=== PATIENT | female | born 1990 | race Caucasian/White ===

== ENCOUNTER 2024-06-29 09:47 | Emergency (ER) | payer SELFPAY ==
[2024-06-29 10:48] LABS: Absolute Eosinophils 0.1 K/uL (0-0.5); Absolute Lymphocytes (CBC) 1.8 K/uL (0.7-4.9); Absolute Monocytes 0.4 K/uL (0.1-1.3); Absolute Neutrophil 3.1 K/uL (1.8-8.0); Basophils % 0.6 % (0-1.3); Eosinophils % 2.3 % (0-4.4); Hematocrit 33.4 % (36.0-45.0); Lymphocytes % 32.8 % (15.3-44.8); MCH 27.1 pg (27.0-35.0); MCHC 32.9 g/dL (32.0-36.0); MCV 82.2 fL (80-100); MPV 8.6 fL (7.6-11.3); Monocytes % 6.8 % (3.3-12.3); Neutrophils % 57.5 % (41.7-73.7); Platelets 207 thou/uL (152-406); RBC Red Blood Cell Count 4.07 M/uL (3.86-4.86); Red Cell Distribution Width 14.2 % (12.1-15.2)
[2024-06-29 11:05] LABS: Anion Gap 6.8 mEq/L (5.0-15.0); BUN Blood Urea Nitrogen 12 mg/dL (7-18); Bicarbonate 29 mEq/L (21-32); Glomerular Filtration Rate 119 ml/min (=/>90); Glucose Level 112 mg/dL (74-106); Magnesium 1.9 mg/dL (1.6-2.4); NT PRO-BNP 78 pg/mL (<125); Potassium 3.8 mEq/L (3.5-5.1); Sodium Level 141 mEq/L (136-145)
[2024-06-29 11:14] LABS: Troponin High Sensitivity < 3.0 pg/mL (<58.9)
--- NOTE | 2024-06-29 13:15 | EDPHYS ---
Physician Documentation [facility] Name: Kay Appiah Age: 34 yrs Sex: Female : 1990 Arrival Date: 06/29/2024 Time: 09:47 Bed 15 Private MD: ED Physician Ann Hobson HPI: 06/29 10:22 This 34 yrs old Female presents to ER via Ambulatory with complaints of Hand Swelling, sd2 Palpitations. 10:22 34 yo F presents with CC of intermittent palpitations for the past year. Reports some sd2 intermittent CP as well. Usually brought on by exertion and stressful events. Seen in May with negative workup per her report as well for similar symptoms. Reports sensation of swelling and tightness in her right hand as well. Denies SOB, n/v. . Historical: - Allergies: 10:08 No Known Allergies; bp - Home Meds: 10:08 Unable to obtain [Active]; bp - PMHx: 10:08 ADHD; bp - Immunization history:: Adult Immunizations up to date. - Infectious Disease History:: Denies. - Social history:: Smoking status: Patient denies any tobacco usage or history of. ROS: 10:22 Constitutional: Negative for fever, chills, and weight loss, Eyes: Negative for injury, sd2 pain, redness, and discharge, Neck: Negative for injury, pain, and swelling, 10:22 Respiratory: Negative for shortness of breath, cough, wheezing. Abdomen/GI: Negative for abdominal pain, nausea, vomiting, diarrhea. 10:22 Skin: Negative for injury, rash, and discoloration, Neuro: Negative for headache, numbness and tingling. 10:22 Cardiovascular: Positive for chest pain, palpitations, Negative for edema, 10:22 MS/extremity: Positive for swelling, Negative for injury or acute deformity, Exam: 10:22 Constitutional: This is a well developed, well nourished patient who is awake, alert, sd2 and in no acute distress. Head/Face: Normocephalic, atraumatic. Eyes: EOMI, normal conjunctiva bilaterally Neck: Trachea midline, no thyromegaly or masses palpated, and no cervical lymphadenopathy. Supple, full range of motion without nuchal rigidity, or vertebral point tenderness. No Meningismus. Chest/axilla: Normal chest wall appearance and motion. Nontender with no deformity. Cardiovascular: Regular rate and rhythm with a normal S1 and S2. No gallops, murmurs, or rubs. 2+ distal pulses. Respiratory: Lungs have equal breath sounds bilaterally, clear to auscultation and percussion. No rales, rhonchi or wheezes noted. No increased work of breathing, no retractions or nasal flaring. Abdomen/GI: Soft, non-tender, with normal bowel sounds. No guarding or rebound. No evidence of tenderness throughout. Skin: Warm, dry with normal turgor. Normal color with no rashes, no lesions, and no evidence of cellulitis. MS/ Extremity: Pulses equal, no cyanosis. Neurovascular intact. Full, normal range of motion. Psych: Awake, alert, with orientation to person, place and time. Behavior, mood, and affect are within normal limits. 10:22 ECG was reviewed by the Attending Physician. NSR, rate 72, no STEMI criteria sd2 Vital Signs: 10:06 BP 115 / 79; Pulse 74; Resp 16; Temp 97.9; Pulse Ox 100% ; Weight 61.69 kg; Height 5 bp ft. 3 in. ; 10:06 Body Mass Index 24.09 (61.69 kg, 160.02 cm) bp MDM: 10:21 Patient medically screened. sd2 13:12 Differential diagnosis: palpitations, arrhythmia, ACS, electrolyte abnormality, PE, sd2 anxiety among others. Data reviewed: vital signs, nurses notes, lab test result(s), EKG, radiologic studies. Care significantly affected by the following chronic conditions: ADHD. Counseling: I had a detailed discussion with the patient and/or guardian regarding the historical points, exam findings, and any diagnostic results supporting the discharge/admit diagnosis, lab results, radiology results, the need for outpatient follow up, to return to the emergency department if symptoms worsen or persist or if there are any questions or concerns that arise at home. ED course: Labs and imaging reviewed with no acute findings. Trop neg. EKG with no ischemic changes. XRs with no acute process noted. Pt advised to follow up with PCP regarding long-term ongoing of these symptoms. Verbalizes understanding of discharge plan and strict return precautions. . 06/29 10:22 Order name: CBC with Diff; Complete Time: 11:20 sd2 06/29 10:22 Order name: BMP; Complete Time: 11:20 06/29 10:22 Order name: Magnesium; Complete Time: 11:20 06/29 10:22 Order name: Troponin High Sensitivity; Complete Time: 11:20 06/29 10:22 Order name: BNP; Complete Time: 11:20 06/29 10:22 Order name: XRAY Chest (1 view); Complete Time: 17:38 06/29 11:21 Order name: XRAY Hand RIGHT 3 View; Complete Time: 17:38 06/29 10:22 Order name: EKG - Nurse/Tech; Complete Time: 10:34 sd2 Administered Medications: No medications were administered Disposition Summary: 06/29/24 13:14 Discharge Ordered Problem: an ongoing problem sd2 Symptoms: have improved sd2 Condition: Stable sd2 Diagnosis - Palpitations sd2 - Sensation of right hand tightness sd2 Followup: sd2 - With: Private Physician - When: 2 - 3 days - Reason: Recheck today's complaints, Continuance of care, Re-evaluation by your physician Discharge Instructions: - Discharge Summary Sheet sd2 - Palpitations sd2 Forms: - Work release form iw - Family Work Release iw - Medication Reconciliation Form sd2 - Antibiotic Education sd2 - Prescription Opioid Use sd2 - Patient Portal Instructions sd2 - Leadership Thank You Letter sd2 Signatures: Dispatcher [employer] Dalton Victor, RN RN Ann Davison MD MD sd2 Corrections: (The following items were deleted from the chart) 10:22 10:22 Chest Single View+RAD.RAD.[email or web address] ordered. SIMONE NICHOLS
--- NOTE | 2024-06-29 13:15 | ER ---
Nurse's Notes [facility] Name: Kay Appiah Age: 34 yrs Sex: Female : 1990 Arrival Date: 06/29/2024 Time: 09:47 Bed 15 Private MD: Diagnosis: Palpitations;Sensation of right hand tightness Presentation: 06/29 10:06 Chief complaint: Patient states: PALPITATIONS x1 YR, RIGHT HAND SUBJECTIVE EDEMA x1 bp DAY. Coronavirus screen: At this time, the client does not indicate any symptoms associated with coronavirus-19. Ebola Screen: No symptoms or risks identified at this time. Initial Sepsis Screen: Does the patient meet any 2 criteria? No. Patient's initial sepsis screen is negative. Does the patient have a suspected source of infection? No. Patient's initial sepsis screen is negative. Risk Assessment: Do you want to hurt yourself or someone else? Patient reports no desire to harm self or others. Onset of symptoms is unknown. 10:06 Method Of Arrival: Ambulatory bp 10:06 Acuity: QIANA 3 bp Triage Assessment: 10:08 General: Appears in no apparent distress. Behavior is cooperative, appropriate for age, bp anxious. Pain: Denies pain. EENT: No deficits noted. Neuro: Level of Consciousness is awake, alert, obeys commands, Oriented to Appropriate for age. Cardiovascular: No deficits noted. Respiratory: No deficits noted. GI: No signs and/or symptoms were reported involving the gastrointestinal system. Historical: - Allergies: 10:08 No Known Allergies; bp - Home Meds: 10:08 Unable to obtain [Active]; bp - PMHx: 10:08 ADHD; bp - Immunization history:: Adult Immunizations up to date. - Infectious Disease History:: Denies. - Social history:: Smoking status: Patient denies any tobacco usage or history of. Screenin:20 [facility] ED Fall Risk Assessment (Adult) History of falling in the last 3 months, db including since admission No falls in past 3 months (0 pts) Confusion or Disorientation No (0 pts) Intoxicated or Sedated No (0 pts) Impaired Gait No (0 pts) Mobility Assist Device Used No (0 pt) Altered Elimination No (0 pt) Score/Fall Risk Level 0 - 2 = Low Risk Oriented to surroundings, Maintained a safe environment. Abuse screen: Denies threats or abuse. Denies injuries from another. Nutritional screening: No deficits noted. Tuberculosis screening: No symptoms or risk factors identified. Assessment: 10:15 Reassessment: Patient appears in no apparent distress at this time. Patient and/or db family updated on plan of care and expected duration. Pain level reassessed. Patient is alert, oriented x 3, equal unlabored respirations, skin warm/dry/pink. General: Appears in no apparent distress. comfortable, Behavior is calm, cooperative, appropriate for age. Pain: Complains of pain in chest. Neuro: Level of Consciousness is awake, alert, obeys commands, Oriented to person, place, time, situation. Cardiovascular: Reports palpitations. Respiratory: Airway is patent Respiratory effort is even, unlabored, Respiratory pattern is regular, symmetrical. Vital Signs: 10:06 BP 115 / 79; Pulse 74; Resp 16; Temp 97.9; Pulse Ox 100% ; Weight 61.69 kg; Height 5 bp ft. 3 in. ; 10:06 Body Mass Index 24.09 (61.69 kg, 160.02 cm) bp ED Course: 09:51 Patient arrived in ED. im 09:56 Ann Hobson MD is Attending Physician. sd2 10:08 Suha Corral, RN is Primary Nurse. db 10:08 Triage completed. bp 10:08 Arm band placed on. bp 10:42 Initial lab(s) drawn, by me, sent to lab. Inserted saline lock: 20 gauge in right bc6 antecubital area, using aseptic technique. Blood collected. Flushed with 10 mL NS. 10:58 Patient has correct armband on for positive identification. Bed in low position. Call db light in reach. Side rails up X 1. Report given to EMILY LEE. Client placed on continuous cardiac and pulse oximetry monitoring. NIBP monitoring applied. color television console monitor on. Pulse ox on. NIBP on. Warm blanket given. Pillow given. 11:08 Tasneem Vargas, RN is Primary Nurse. iw 11:49 XRAY Chest (1 view) In Process Unspecified. EDMS 11:49 XRAY Hand RIGHT 3 View In Process Unspecified. EDMS Administered Medications: No medications were administered Medication: 10:20 VIS not applicable for this client. db Outcome: 13:14 Discharge ordered by . sd2 13:55 Patient left the ED. iw Signatures: Dispatcher [employer] Tasneem Gray RN RN iw Peltier, Brian, RN RN bp Dunlop, Stephanie, MD MD sd2 Suha Corral RN RN db Carowatson, Breana 6 Lou Sands
--- NOTE | 2024-06-29 13:48 | RAD REPORT ---
Exam:Hand Right 3 View HISTORY: Right hand swelling FINDINGS: No fracture or dislocation seen No bone or joint abnormality noted
--- NOTE | 2024-06-29 13:48 | RAD REPORT ---
Procedure: Chest Single View History: Chest pain Comparison: none The lungs appear clear of acute infiltrate. No significant pleural effusion noted. The heart is normal size. IMPRESSION: No acute abnormality is displayed.
[2024-06-29 14:13] VITALS: BP 115/79; TEMP 97.9; O2SAT 100
--- NOTE | 2024-06-30 12:11 | EKG ---
Test Date: 2024-06-29 Test Time: 10:17:02 [employer]er [employer] Applier: ANNIE MEASUREMENT RESULTS: Intervals: Rate: 72 RI: 140 QRSD: 80 QT: 398 QTc: 435 [place]: P: 49 RI: 140 QRS: 78 T: 73 INTERPRETIVE STATEMENTS: Normal sinus rhythm Normal ECG No previous ECG available for comparison Electronically Signed On 06-30-24 12:09:08 CDT by Jared Albert
== END 2024-06-29 13:55 | disposition home or self-care (01) ==
LOC: ER 09:47
DX: R00.2 Palpitations (principal); M25.641 Stiffness of right hand, not elsewhere classified; R07.9 Chest pain, unspecified
CPT/HCPCS: 36415; 71045; 80048; 83735; 83880; 84484; 85025; 93005; 99284